=== PATIENT | male | born 1955 | race African-American/Black ===

== ENCOUNTER 2020-11-04 19:55 | Inpatient (IN) ==
[2020-11-04] MEDS ORDERED: BENZOCAINE/BUTAMBEN/TETRACAINE SPRAY 20 GM CAN TOP ONE (21:25)
[2020-11-05] MEDS ORDERED: ACETAMINOPHEN 325 MG TABLET PO PRN (00:20)
[2020-11-05] MEDS ORDERED: ONDANSETRON 4 MG/2 ML VIAL IV PRN (00:20)
[2020-11-05] MEDS ORDERED: LEVOFLOXACIN INJ 750 MG in PREMIX 1 EACH IV SCH (01:00)
[2020-11-05] MEDS: LACTATED RINGERS 1,000 ML IV SCH ×4 (03:43→23:21)
[2020-11-05] MEDS: PANTOPRAZOLE 40 MG TABLET PO SCH (08:05)
[2020-11-05 08:13] LABS: Basophils % 0.3 % (0.0-0.8); Eosinophils # 0.3 10*3/uL (0.0-0.87); Eosinophils % 5.3 % (0.00-10.9); Hematocrit 39.1 VOL% (42.0-52.0); Hemoglobin 12.3 GM/DL (14.0-18.0); Immature Granulocytes % 0.6 %; Immature Granulocytes Absolute 0.04 #; Lymphocytes # 1.4 10*3/uL (1.4-4.0); Lymphocytes % 21.1 % (21.2-54.2); Mean Corpuscular HGB Conc 31.5 GM/DL (32-36); Mean Corpuscular Volume 89.3 FL (87-102); Mean Platelet Volume 10.2 FL (9.6-12.0); Monocytes % 6.6 % (1.7-12.7); Neutrophils % 66.1 % (38.7-73.9); Platelet Count 226 T/CUMM (130-400); Red Blood Count 4.38 MC/CUMM (3.8-5.5); Red Cell Distribution Width 14.6 % (9.3-17.3); White Blood Count 6.4 T/CUMM (4-12)
[2020-11-05 08:41] LABS: Calcium 8.7 MG/DL (8.5-10.1); Osmolality,Calculated 288.1 MOS/KG (273-304)
[2020-11-05] MEDS ORDERED: CYCLOBENZAPRINE 10 MG TABLET PO PRN (09:39)
[2020-11-05] MEDS ORDERED: traMADol 50 MG TABLET PO PRN (09:39)
[2020-11-05] MEDS: GABAPENTIN 300 MG CAPSULE PO SCH ×3 (13:57→20:55)
[2020-11-05] MEDS: SKIN HEALING OINT (AQUAPHOR) 50 GM TUBE TOP SCH (13:57)
[2020-11-05] MEDS: QUEtiapine 25 MG TABLET PO SCH (20:55)
[2020-11-05] MEDS: ECONAZOLE 1% TOP SCH (20:55)
[2020-11-05] MEDS ORDERED: LATANOPROST 0.005% OPH SOLN 2.5 ML BOTTLE BOTH EYES SCH (21:00)
[2020-11-06 07:15] LABS: Basophils % 0.5 % (0.0-0.8); Eosinophils # 0.4 10*3/uL (0.0-0.87); Eosinophils % 6.2 % (0.00-10.9); Hemoglobin 10.7 GM/DL (14.0-18.0); Immature Granulocytes % 0.6 %; Immature Granulocytes Absolute 0.04 #; Lymphocytes # 1.9 10*3/uL (1.4-4.0); Mean Corpuscular HGB Conc 32.4 GM/DL (32-36); Mean Corpuscular Volume 88.5 FL (87-102); Mean Platelet Volume 10.5 FL (9.6-12.0); Neutrophils % 57.7 % (38.7-73.9); Platelet Count 200 T/CUMM (130-400); Red Blood Count 3.73 MC/CUMM (3.8-5.5); Red Cell Distribution Width 14.5 % (9.3-17.3); White Blood Count 6.5 T/CUMM (4-12)
[2020-11-06 07:37] LABS: Calcium 8.2 MG/DL (8.5-10.1); Osmolality,Calculated 279.3 MOS/KG (273-304)
[2020-11-06] MEDS ORDERED: ARIPiprazole 10 MG TABLET PO SCH (09:00)
[2020-11-06] MEDS ORDERED: ASPIRIN EC 81 MG TABLET PO SCH (09:00)
[2020-11-06] MEDS ORDERED: cefTRIAXone 1,000 MG in SYRINGE 1 EACH IV SCH (09:00)
[2020-11-06] MEDS ORDERED: DOXYCYCLINE HYCLATE INJ 100 MG in SODIUM CHLORIDE 0.9% 100 ML IV SCH (09:00)
[2020-11-06] MEDS ORDERED: risperiDONE 1 MG TABLET PO SCH (09:00)
[2020-11-06] MEDS ORDERED: FLUoxetine 20 MG CAPSULE PO SCH (09:00)
[2020-11-06] MEDS: GABAPENTIN 300 MG CAPSULE PO SCH ×2 (09:41→13:35)
[2020-11-06] MEDS: QUEtiapine 25 MG TABLET PO SCH (09:41)
[2020-11-06] MEDS: SKIN HEALING OINT (AQUAPHOR) 50 GM TUBE TOP SCH (09:41)
[2020-11-06] MEDS: ECONAZOLE 1% TOP SCH (09:41)
[2020-11-06] MEDS: PANTOPRAZOLE 40 MG TABLET PO SCH (09:41)
[2020-11-06 11:18] VITALS: BP 122/65
== END 2020-11-06 15:45 | disposition home health service (06) | DRG 388 ==
LOC: N.ED 19:55 → N.EDINP 21:12 → N.3E 23:49
PROVIDERS: ADMIT Surgery; ATTEND Surgery